=== PATIENT | male | born 1980 | race Caucasian/White ===

== ENCOUNTER 2018-02-01 21:48 | Emergency (ER) | payer MEDICAID ==
--- NOTE | 2018-02-01 22:08 | EDPHY ---
H & P Stated Complaint: Chest pain Time Seen by Provider: 02/01/18 22:05 HPI/ROS: HPI: This is a 29-year-old male who presents with Chief Complaint: Chest pain Location: Chest Quality: Pain Duration: Prior to arrival Signs and Symptoms: no shortness of breath at rest, no shortness of breath on exertion, no cough, no chest pain, no palpitations, no lower extremity edema, no wheezing, no orthopnea, no paroxysmal nocturnal dyspnea, no fever, no injury/ trauma, no hemoptysis, no carpal pedal spasms Timing: Acute Severity: Moderate to severe Context: Patient has a history of generalized anxiety disorder, depression, marijuana use presents via EMS with complaints of while eating dinner having sudden onset of anterior generalized chest pain that radiated down both arms and up into his neck. He reports that he feels extremely anxious and is under considerable stress. [facility]. Reports that he does not want to explain the reason to me other then he smoked 2 bowls of marijuana that were laced with methamphetamine prior to him being admitted. He reports that "he freaked out." Denies any caffeine use/recent recreational drug use. Daily tobacco user. Has not tried anything for the symptoms. EMS give patient aspirin and nitro. Has no primary care provider. Modifying Factors: See above Comment: ROS: see HPI Constitutional: No fever, no chills, no weight loss Eyes: No blurred vision Respiratory: No shortness of breath, no cough Cardiovascular: No chest pain, no palpitations, no lower extremity edema Gastrointestinal: No nausea, no vomiting, no diarrhea Genitourinary: No dysuria Extremities: No myalgias Neurologic: No weakness, no numbness Skin: No rashes Hematologic: No bruising, no bleeding MEDICAL/SURGICAL/SOCIAL HISTORY: Medical history: Depression, anxiety Surgical history: Skin graft Social history: Tobacco and marijuana use. Unemployed. CONSTITUTIONAL: Extremely anxious, thin, well-appearing adult white male, awake and alert, no obvious distress HEENT: Atraumatic and normocephalic, PERRL, EOMI. Nares patent; no rhinorrhea; no nasal mucosal edema. Tympanic membranes clear. Oropharynx clear, no exudate and moist pink mucosa. Airway patent. No lymphadenopathy. No meningismus. Cardiovascular: Normal S1/S2, regular rate, regular rhythm, without murmur rub or gallop. PULMONARY/CHEST: Symmetrical and nontender. Clear to auscultation bilaterally. Good air movement. No accessory muscle usage. ABDOMEN: Soft, nondistended, nontender, no rebound, no guarding, no peritoneal signs, no masses or organomegaly. No CVAT. EXTREMITIES: 2/2 pulses, strength 5/5, no deformities, no clubbing, no cyanosis or edema. NEUROLOGICAL: no focal neuro deficits. GCS 15. SKIN: Warm and dry, multiple tattoos, no erythema. no rash. Good capillary refill. Source: Patient, RN/MD, EMS Exam Limitations: No limitations - Personal History Current Tetanus Diphtheria and Acellular Pertussis (TDAP): Unsure - Medical/Surgical History Hx Asthma: No Hx Chronic Respiratory Disease: No Hx Diabetes: No Hx Cardiac Disease: Yes Hx Renal Disease: No Hx Cirrhosis: No Hx Alcoholism: Yes Hx HIV/AIDS: No Hx Splenectomy or Spleen Trauma: No Other PMH: arrthmyias, drug use - Social History Smoking Status: Heavy smoker Constitutional: Initial Vital Signs Temperature (C) 36.8 C 02/01/18 21:53 Heart Rate 99 02/01/18 21:53 Respiratory Rate 20 02/01/18 21:53 Blood Pressure 128/64 H 02/01/18 21:53 O2 Sat (%) 98 02/01/18 21:53 O2 Delivery Mode Room Air Medical Decision Making - Diagnostics EKG Interpretation: 12 lead EKG: Indication: Chest pain Rhythm: Normal sinus rhythm, rate 86 beats per minute [place]: Normal Intervals: Normal QRS: Normal ST segments: Normal T-waves: Nonspecific changes INTERPRETATION: Normal repolarization pattern The 12 lead EKG was interpreted by myself and with attending. Imaging Results: Imaging Impressions Chest X-Ray 02/01/18 22:05 Impression: Normal chest. ED Course/Re-evaluation: Reviewed telemetry by EMS and shows normal sinus rhythm. Vital signs reviewed upon arrival in stable. No signs of hypoxia/respiratory distress/pneumonia. Already given aspirin and nitro en route. Wells criteria low for pulmonary embolism. EKG and chest x-ray ordered. Doubt cardiac or lung etiology. Suspect anxiety/ psychological component. 2221: EKG my read shows normal sinus rhythm. No signs of arrhythmia/acute ischemic changes. 2234: Chest x-ray my read shows no opacity, no effusion, no pneumothorax, no widened mediastinum. No indication to warrant further testing including laboratory studies as symptoms have completely resolved. This patient was seen under the supervision of my secondary supervising physician. I evaluated care for this patient independently. Differential Diagnosis: Chest pain including but not limited to myocardial ischemia, pulmonary embolus, chest wall pain, pleural inflammation and pulmonary infectious causes. Departure - Departure Disposition: Home, Routine, Self-Care Clinical Impression: Atypical chest pain, Anxiety Condition: Good Instructions: Noncardiac Chest Pain (ED) Additional Instructions: Today it has been determined that your chest pain is not related to cardiac or pulmonary reasons. EKG and chest x-ray are normal. Please establish care at [facility] and follow up with them in the next 5- 7 days. Refrain from drinking caffeine, smoking cigarettes, smoking marijuana. Practice relaxation techniques. Return to the ER immediately if you experience new, continued or worsened chest pain, chest pain that radiates, chest pain accompanied by exertion or associated with shortness of breath, sweating, nausea, dizziness, back pain, or any other symptoms that concern you. Referrals: [facility],. [Clinic] - As per Instructions
--- NOTE | 2018-02-01 22:11 | CPEKG ---
Heart Rate: 86 RR Interval: 698 P-R Interval: 140 QRSD Interval: 86 QT Interval: 380 QTC Interval: 455 P [place]: 77 QRS [place]: 84 T Wave [place]: 77 EKG Severity - ABNORMAL ECG - EKG Impression: SINUS RHYTHM EKG Impression: NONSPECIFIC T ABNORMALITIES, ANT-LAT LEADS EKG Impression: ST ELEV, PROBABLE NORMAL EARLY REPOL PATTERN Electronically Signed By: John Estevez 02-Feb-2018 17:28:57
[2018-02-01 23:34] VITALS: BP 124/66
== END 2018-02-01 23:33 | disposition home or self-care (01) ==
LOC: EDBD 21:48
DX: R07.89 Other chest pain (principal); F41.9 Anxiety disorder, unspecified; F17.200 Nicotine dependence, unspecified, uncomplicated

== ENCOUNTER 2018-06-03 16:22 | Emergency (ER) | payer MEDICAID ==
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
[2018-06-03 17:47] LABS: PLATELET COUNT 207 10^3/uL (150-400)
[2018-06-03] MEDS ORDERED: IOPAMIDOL (ISOVUE 370) 100 ML BTL IV ONE (18:22)
[2018-06-03 19:20] VITALS: BP 118/77
== END 2018-06-03 20:36 | disposition home or self-care (01) ==
DX: R10.31 Right lower quadrant pain (principal); S09.90XD Unspecified injury of head, subsequent encounter; F17.200 Nicotine dependence, unspecified, uncomplicated
CPT/HCPCS: 82435-PO; 82565-PO; 82947-PO; 84132-PO; 84295-PO; 84520-PO; 85014-PO; Q9967

== ENCOUNTER 2018-06-10 14:53 | Emergency (ER) | payer MEDICAID ==
[2018-06-10] MEDS ORDERED: NS 1,000 ML IV ONE (16:01)
--- NOTE | 2018-06-10 16:10 | EDPHY ---
H & P Stated Complaint: head inj 1.5 wks agp/pt with continued amdaor/changes in pupils per family/[place]/ Time Seen by Provider: 06/10/18 15:49 HPI/ROS: CHIEF COMPLAINT: Headaches, fainting, unequal pupils HISTORY OF PRESENT ILLNESS: The patient is a 37-year-old man who suffered a head injury at [employer] on the of last month. He came to the emergency department and had a CT of his head and neck which were unremarkable. He is discouraged with concussion precautions. He came back with this family 3 days later with confusion and trouble ordering from a menu and imbalance. At that time he had CT angio of his head and neck. An MRI was ordered but he did not tolerate it because of shrapnel in his back it was aborted. He also had right lower quadrant pain at the time and had a CT was abdomen that was negative. He now comes back today with his cousin who states that he still has headaches that seems to fluctuate. He sometimes seems very confused and other times is normal and lucid. He also has had pre syncopal episodes almost daily. She states that at her house he was helping with some construction and while screwing and screw with a screwdriver felt lightheaded and fell over onto his side. The patient states that he has not been resting appropriately. No new head injuries. No chest pain or arrhythmias. 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 Also his cousin noted that when he woke up today and looked like his left pupils bigger than his right. They have now normalized. The patient wears contacts with fake color and pupils. He is not currently feeling dizzy. He is ambulating without difficulty Severity: Moderate Modifying factors: Sleep REVIEW OF SYSTEMS: Constitutional: denies: chills, fever, recent illness, recent injury EENTM: Contacts denies: blurred vision, double vision, nose congestion Respiratory: denies: cough, shortness of breath Cardiac: See HPI denies: chest pain, irregular heart rate, palpitations Gastrointestinal/Abdominal: See HPI denies: abdominal pain, diarrhea, vomiting , blood streaked stools Genitourinary: denies: dysuria, frequency, hematuria, pain Musculoskeletal: denies: joint pain, muscle pain Skin: denies: lesions, rash, jaundice, bruising Neurological: See HPI denies: numbness, paresthesia, tingling, weakness Hematologic/Lymphatic: denies: blood clots, easy bleeding, easy bruising Immunologic/allergic: denies: HIV/AIDS, transplant 10 systems reviewed and negative except as noted EXAM: GENERAL: Well-appearing, well-nourished and in no acute distress. HEAD: Atraumatic, normocephalic. EYES: Colored iris Contacts in place but Pupils equal round and reactive to light, extraocular movements intact, sclera anicteric, conjunctiva are normal. ENT: TMs normal, nares patent, oropharynx clear without exudates. Moist mucous membranes. NECK: Normal range of motion, supple without lymphadenopathy or JVD. LUNGS: Breath sounds clear to auscultation bilaterally and equal. No wheezes rales or rhonchi. HEART: Regular rate and rhythm without murmurs, rubs or gallops. ABDOMEN: Soft, nontender, normoactive bowel sounds. No guarding, no rebound. No masses appreciated. BACK: No CVA tenderness, no spinal tenderness, step-offs or deformities EXTREMITIES: Normal range of motion, no pitting or edema. No clubbing or cyanosis. NEUROLOGICAL: Cranial nerves II through XII grossly intact. Normal speech, normal gait. 5/5 strength, normal movement in all extremities, normal sensation , normal reflexes PSYCH: Normal mood, normal affect. SKIN: Warm, dry, normal turgor, no visible rashes or lesions. Source: Patient Exam Limitations: No limitations - Personal History Current Tetanus Diphtheria and Acellular Pertussis (TDAP): Unsure - Medical/Surgical History Hx Asthma: No Hx Chronic Respiratory Disease: No Hx Diabetes: No Hx Cardiac Disease: No Hx Renal Disease: No Hx Cirrhosis: No Hx Alcoholism: Yes Hx HIV/AIDS: No Hx Splenectomy or Spleen Trauma: No Other PMH: Traumatic brain injury, hernia - Family History Significant Family History: No pertinent family hx - Social History Smoking Status: Heavy smoker Alcohol Use: Sober Drug Use: None Constitutional: Initial Vital Signs Temperature (C) 36.9 C 06/10/18 15:23 Heart Rate 76 06/10/18 15:23 Respiratory Rate 16 06/10/18 15:23 Blood Pressure 153/79 H 06/10/18 15:23 O2 Sat (%) 95 06/10/18 15:23 O2 Delivery Mode Room Air Allergies/Adverse Reactions: No Known Allergies Allergy (Verified 06/10/18 15:22) Home Medications: Medication Instructions Recorded NK [No Known Home Meds] 06/10/18 Medical Decision Making - Diagnostics Imaging Results: Imaging Impressions Head CT 06/10/18 16:02 Impression: Normal. Results called and discussed with Dr. Heath Johnson at 06/10/2018 16:39. ED Course/Re-evaluation: 5:30 p.m. We discussed the CT results. The patient is currently asymptomatic. He feels reassured. He is eager to go home. We discussed treatment for concussions and follow-up. Differential Diagnosis: Partial list of the Differential diagnosis considered include but were not limited to; concussion, delayed bleed and although unlikely based on the history and physical exam, I also considered infection, trauma. I discussed these differential diagnoses and the plan with the patient as well as the usual and expected course. The patient understands that the diagnosis is provisional and that in medicine we are not always correct and that further workup is often warranted. Usual and customary warnings were given. All of the patient's questions were answered. The patient was instructed to return to the emergency department should the symptoms at all worsen or return, otherwise to followup with the physician as we discussed. - Data Points Laboratory Results: Laboratory Results 06/10/18 16:24 06/10/18 16:24 06/10/18 06/10/18 06/10/18 16:51 16:29 16:24 WBC RBC Hgb Hct MCV MCH MCHC RDW Plt Count MPV Neut % (Auto) Lymph % (Auto) [place] % (Auto) Eos % (Auto) Baso % (Auto) Nucleat RBC Rel Count Absolute Neuts (auto) Absolute Lymphs (auto) Absolute Monos (auto) Absolute Eos (auto) Absolute Basos (auto) Absolute Nucleated RBC Immature Gran % Immature Gran # Sodium 139 mEq/L mEq/L (135-145) Potassium 4.4 mEq/L mEq/L (3.3-5.0) Chloride 106 mEq/L mEq/L (97-110) Carbon Dioxide 27 mEq/l mEq/l (22-31) Anion Gap 6 mEq/L L mEq/L (8-16) BUN 23 mg/dL mg/dL (7-23) Creatinine 1.2 mg/dL mg/dL (0.7-1.3) Estimated GFR > 60 Glucose 113 mg/dL H mg/dL (70-100) Calcium 9.3 mg/dL mg/dL (8.5-10.4) POC Troponin I 0.00 ng/mL ng/mL 0.01 ng/mL ng/mL (0.00-0.08) (0.00-0.08) 06/10/18 16:24 WBC 7.43 10^3/uL 10^3/uL (3.80-9.50) RBC 4.51 10^6/uL 10^6/uL (4.40-6.38) Hgb 14.6 g/dL g/dL (13.7-17.5) Hct 41.1 % % (40.0-51.0) MCV 91.1 fL fL (81.5-99.8) MCH 32.4 pg pg (27.9-34.1) MCHC 35.5 g/dL g/dL (32.4-36.7) RDW 12.5 % % (11.5-15.2) Plt Count 252 10^3/uL 10^3/uL (150-400) MPV 9.6 fL fL (8.7-11.7) Neut % (Auto) 57.3 % % (39.3-74.2) Lymph % (Auto) 32.0 % % (15.0-45.0) [place] % (Auto) 7.5 % % (4.5-13.0) Eos % (Auto) 2.4 % % (0.6-7.6) Baso % (Auto) 0.5 % % (0.3-1.7) Nucleat RBC Rel Count 0.0 % % (0.0-0.2) Absolute Neuts (auto) 4.25 10^3/uL 10^3/uL (1.70-6.50) Absolute Lymphs (auto) 2.38 10^3/uL 10^3/uL (1.00-3.00) Absolute Monos (auto) 0.56 10^3/uL 10^3/uL (0.30-0.80) Absolute Eos (auto) 0.18 10^3/uL 10^3/uL (0.03-0.40) Absolute Basos (auto) 0.04 10^3/uL 10^3/uL (0.02-0.10) Absolute Nucleated RBC 0.00 10^3/uL 10^3/uL (0-0.01) Immature Gran % 0.3 % % (0.0-1.1) Immature Gran # 0.02 10^3/uL 10^3/uL (0.00-0.10) Sodium Potassium Chloride Carbon Dioxide Anion Gap BUN Creatinine Estimated GFR Glucose Calcium POC Troponin I Medications Given: Discontinued Medications Sodium Chloride (Ns) 1,000 mls @ 0 mls/hr IV ONCE ONE; Wide Open PRN Reason: Protocol Stop: 06/10/18 16:02 Last Admin: 06/10/18 16:20 Dose: 1,000 mls Point of Care Test Results: Chemistry 06/10/18 06/10/18 16:51 16:29 POC Troponin I 0.00 ng/mL ng/mL 0.01 ng/mL ng/mL (0.00-0.08) (0.00-0.08) Departure - Departure Disposition: Home, Routine, Self-Care Clinical Impression: Concussion Qualifiers: Encounter type: subsequent encounter Loss of consciousness presence/duration: without LOC Qualified Code(s): S06.0X0D - Concussion without loss of consciousness, subsequent encounter Condition: Fair Instructions: Concussion (ED) Referrals: NONE *PRIMARY CARE P,. [Primary Care Provider] - 2-3 days, call for appt. Kayleigh Weinberg MD [Medical Doctor] - As per Instructions
[2018-06-10 16:38] LABS: PLATELET COUNT 252 10^3/uL (150-400)
[2018-06-10 18:12] VITALS: BP 119/78
== END 2018-06-10 18:10 | disposition home or self-care (01) ==
DX: S06.0X0D Concussion without loss of consciousness, subsequent encounter (principal); E86.9 Volume depletion, unspecified; V19.88XD Pedal cyclist (driver) (passenger) injured in other specified transport accidents, subsequent encounter; Y93.55 Activity, bike riding; Y92.830 Public park as the place of occurrence of the external cause; Y99.8 Other external cause status; F17.200 Nicotine dependence, unspecified, uncomplicated
CPT/HCPCS: 84484-PO

== ENCOUNTER 2019-02-19 17:44 | Emergency (ER) | payer MEDICAID ==
[2019-02-19] MEDS ORDERED: IOPAMIDOL (ISOVUE-300) 100 ML BTL ONE (19:58)
--- NOTE | 2019-02-19 20:56 | EDPHY ---
H & P Stated Complaint: Abcess roof of mouth, spreading to sinus c facial numbness. Time Seen by Provider: 02/19/19 19:15 HPI/ROS: Chief complaint: Dental abscess History of present illness: This is a 38-year-old male who presents to the emergency department concerned he has a dental abscess that is spreading to his face and neck. He reports the onset of mouth pain over the last few days. He now feels pain and swelling spreading up towards his eyes, to the right side of his face and down into his neck. He is having trouble opening his mouth. He denies fevers. He denies trouble speaking, swallowing or breathing. He does have an upcoming appointment this week with his dentist. He has started penicillin that he had at home. Review of systems: A 10 point review of systems was obtained and other than described above was negative - Personal History Current Tetanus/Diphtheria Vaccine: Unsure - Medical/Surgical History Hx Asthma: No Hx Chronic Respiratory Disease: No Hx Diabetes: No Hx Cardiac Disease: No Hx Renal Disease: No Hx Cirrhosis: No Hx Alcoholism: Yes Hx HIV/AIDS: No Hx Splenectomy or Spleen Trauma: No Other PMH: Traumatic brain injury, hernia - Social History Smoking Status: Heavy smoker - Physical Exam Exam: General Appearance: Alert, nontoxic. Eyes: Pupils equal and round no injection. ENT: Tympanic membranes, external auditory canals, external ears and surrounding soft tissue including over the mastoids are unremarkable. Nasopharynx is not injected. There is no rhinorrhea. Oropharynx is not injected. There is no edema. There is no exudate. There is no asymmetry. The uvula is midline. No elevation of the tongue. Patient has poor dental hygiene. He has difficulty opening his mouth the hallway. There is no hoarseness, no drooling, no stridor. Respiratory: Chest is non tender, lungs are clear to auscultation. Cardiac: regular rate and rhythm Musculoskeletal: Neck is supple and non tender. Extremities have full range of motion and are non tender. Skin: No rashes or lesions. Constitutional: Initial Vital Signs Temperature (C) 37.3 C 02/19/19 17:55 Heart Rate 90 02/19/19 17:55 Respiratory Rate 16 02/19/19 17:55 Blood Pressure 131/75 H 02/19/19 17:55 O2 Sat (%) 94 02/19/19 17:55 O2 Delivery Mode Room Air Allergies/Adverse Reactions: No Known Allergies Allergy (Verified 02/19/19 17:55) Home Medications: Medication Instructions Recorded Clindamycin 02/21/19 Vicodin 5-300 mg Tablet 02/21/19 Medical Decision Making - Diagnostics Imaging: Discussed imaging studies w/ inbound call center representative Radiologist ED Course/Re-evaluation: Patient seen under the supervision of my secondary supervising physician Dr. Heath Johnson. Patient presents for mouth pain that is spreading to the rest of his face. He is concerned he is developing a severe infection. He is nontoxic. CT scan is obtained with no evidence of cellulitis or drainable abscess. He is to follow up with a dentist as planned. Home care is discussed. Return precautions are given. Differential Diagnosis: Included but not limited to dental carlos, periodontal abscess, facial cellulitis , retro-orbital cellulitis, Jaswinder's angina - Data Points Medications Given: Discontinued Medications Acetaminophen (Tylenol) 650 mg PO EDNOW ONE Stop: 02/19/19 21:12 Last Admin: 02/19/19 21:12 Dose: Not Given Point of Care Test Results: Chemistry 02/19/19 19:51 POC Sodium 139 mEq/L mEq/L (135-145) POC Potassium 4.7 mEq/L mEq/L (3.3-5.0) POC Chloride 105 mEq/L mEq/L (97-110) POC Total CO2 28 mEq/L mEq/L (22-31) POC BUN 22 mg/dL mg/dL (7-23) POC Creatinine 1.1 mg/dL mg/dL (0.7-1.3) POC Glucose 88 mg/dL mg/dL (70-100) ISTAT H&H 02/19/19 19:51 POC Hgb 16.0 gm/dL gm/dL (13.7-17.5) POC Hct 47 % % (40-51) Departure - Departure Disposition: Home, Routine, Self-Care Clinical Impression: Poor dental hygiene Condition: Good Instructions: Toothache (ED) Additional Instructions: Follow-up with a dentist for continued evaluation and care Use ibuprofen 600 mg 3 times a day for the next 2-3 days for pain control In addition You can take 1 g of Tylenol every 8 hr for pain control If symptoms worsen or new symptoms develop return to the emergency room Referrals: NONE *PRIMARY CARE P,. [Primary Care Provider] - As per Instructions [facility] [Outside] - As per Instructions [facility] [Outside] - As per Instructions [facility] [Outside] - As per Instructions Dental [address] [Outside] - As per Instructions Dental [facility] [Outside] - As per Instructions
[2019-02-19] MEDS ORDERED: ACETAMINOPHEN 325 MG TAB ONE (21:09)
[2019-02-19] MEDS ORDERED: ACETAMINOPHEN 325 MG TAB PO ONE (21:11)
[2019-02-19 21:12] VITALS: BP 132/82
== END 2019-02-19 21:12 | disposition home or self-care (01) ==
DX: K08.9 Disorder of teeth and supporting structures, unspecified (principal); F17.200 Nicotine dependence, unspecified, uncomplicated; Z87.820 Personal history of traumatic brain injury
CPT/HCPCS: 82435-PO; 82565-PO; 82947-PO; 84132-PO; 84295-PO; 84520-PO; 85014-ER; Q9967

== ENCOUNTER 2019-02-21 21:09 | Emergency (ER) | payer MEDICAID ==
[2019-02-21 21:15] VITALS: BP 157/83
[2019-02-21] MEDS ORDERED: KETOROLAC 30 MG/1 ML SDV IM ONE (21:25)
[2019-02-21] MEDS ORDERED: DEXAMETHASONE 4 MG TAB PO ONE (21:26)
--- NOTE | 2019-02-21 21:29 | EDPHY ---
H & P Stated Complaint: right side upper teeth swollen, taking antibiotics from dentist, not improv Time Seen by Provider: 02/21/19 21:19 HPI/ROS: CHIEF COMPLAINT: Dental infection HISTORY OF PRESENT ILLNESS: Patient is a 38-year-old man who has a dental infection in his right maxillary teeth. He was seen here 2 days ago and had a CT scan of his neck that revealed no abscess. He was seen at the dentist yesterday and was diagnosed with a apical abscess on x-ray. He was started on clindamycin. He previous to that he had been on penicillin without improvement. Today he noticed that his swelling was worse and became concerned. He is also having occasional fevers. He is asking for anti- inflammatory medicine. No difficulty swallowing. No difficulty breathing. Mental status changes. Severity: Moderate Modifying factors: Not improving with antibiotics REVIEW OF SYSTEMS: Constitutional: denies: chills, fever, recent illness, recent injury EENTM: See HPI Respiratory: denies: cough, shortness of breath Cardiac: denies: chest pain, irregular heart rate, lightheadedness, palpitations Gastrointestinal/Abdominal: denies: abdominal pain, diarrhea, nausea, vomiting, blood streaked stools Genitourinary: denies: dysuria, frequency, hematuria, pain Musculoskeletal: denies: joint pain, muscle pain Skin: denies: lesions, rash, jaundice, bruising Neurological: denies: headache, numbness, paresthesia, tingling, dizziness, weakness Hematologic/Lymphatic: denies: blood clots, easy bleeding, easy bruising Immunologic/allergic: denies: HIV/AIDS, transplant 10 systems reviewed and negative except as noted EXAM: GENERAL: Well-appearing, well-nourished and in no acute distress. HEAD: Atraumatic, normocephalic. EYES: Pupils equal round and reactive to light, extraocular movements intact, sclera anicteric, conjunctiva are normal. ENT: TMs normal, nares patent, poor dentition, tenderness to right upper teeth , no obvious fluctuance NECK: Normal range of motion, supple without lymphadenopathy or JVD. LUNGS: Breath sounds clear to auscultation bilaterally and equal. No wheezes rales or rhonchi. HEART: Regular rate and rhythm without murmurs, rubs or gallops. ABDOMEN: Soft, nontender, normoactive bowel sounds. No guarding, no rebound. No masses appreciated. BACK: No CVA tenderness, no spinal tenderness, step-offs or deformities EXTREMITIES: Normal range of motion, no pitting or edema. No clubbing or cyanosis. NEUROLOGICAL: Cranial nerves II through XII grossly intact. Normal speech, normal gait. 5/5 strength, normal movement in all extremities, normal sensation , normal reflexes PSYCH: Normal mood, normal affect. SKIN: Warm, dry, normal turgor, no visible rashes or lesions. Source: Patient, Family Exam Limitations: No limitations - Personal History Current Tetanus Diphtheria and Acellular Pertussis (TDAP): Yes - Medical/Surgical History Hx Asthma: No Hx Chronic Respiratory Disease: No Hx Diabetes: No Hx Cardiac Disease: No Hx Renal Disease: No Hx Cirrhosis: No Hx Alcoholism: Yes Hx HIV/AIDS: No Hx Splenectomy or Spleen Trauma: No Other PMH: Traumatic brain injury, hernia - Family History Significant Family History: No pertinent family hx - Social History Smoking Status: Heavy smoker Alcohol Use: None Constitutional: Initial Vital Signs Temperature (C) 37.5 C 02/21/19 21:12 Heart Rate 104 H 02/21/19 21:12 Respiratory Rate 16 02/21/19 21:12 Blood Pressure 157/83 H 02/21/19 21:12 O2 Sat (%) 91 L 02/21/19 21:12 O2 Delivery Mode Room Air Allergies/Adverse Reactions: No Known Allergies Allergy (Verified 02/19/19 17:55) Home Medications: Medication Instructions Recorded Clindamycin 02/21/19 Vicodin 5-300 mg Tablet 02/21/19 Medical Decision Making ED Course/Re-evaluation: The patient has a apical tooth abscess. His dentist would like him to take antibiotics before working on it. I encouraged him to continue taking the clindamycin. There is nothing drainable at this time. I will treat him with Toradol and dose of Decadron for anti-inflammatory reasons. He is happy with this. He declines further workup or testing at this time. Differential Diagnosis: Partial list of the Differential diagnosis considered include but were not limited to; dental pain, dental abscess, dental carlos, fracture and although unlikely based on the history and physical exam, I also considered sinusitis, meningitis, sepsis, cellulitis, phlegmon. I discussed these differential diagnoses and the plan with the patient as well as the usual and expected course. The patient understands that the diagnosis is provisional and that in medicine we are not always correct and that further workup is often warranted. Usual and customary warnings were given. All of the patient's questions were answered. The patient was instructed to return to the emergency department should the symptoms at all worsen or return, otherwise to followup with the physician as we discussed. - Data Points Medications Given: Discontinued Medications Dexamethasone (Decadron) 10 mg PO EDNOW ONE Stop: 02/21/19 21:27 Last Admin: 02/21/19 21:37 Dose: 10 mg Ketorolac Tromethamine (Toradol) 30 mg IM EDNOW ONE Stop: 02/21/19 21:26 Last Admin: 02/21/19 21:37 Dose: 30 mg Departure - Departure Disposition: Home, Routine, Self-Care Clinical Impression: Dental infection Condition: Fair Instructions: Dental Abscess (ED) Additional Instructions: Follow-up with your dentist as we discussed. Referrals: NONE *PRIMARY CARE P,. [Primary Care Provider] - As per Instructions Roxana Ma MD [Medical Doctor] - 2-3 days, if not improved
== END 2019-02-21 21:48 | disposition home or self-care (01) ==
DX: K04.7 Periapical abscess without sinus (principal); F17.200 Nicotine dependence, unspecified, uncomplicated; Z87.820 Personal history of traumatic brain injury
CPT/HCPCS: J1885